=== PATIENT | male | born 1950 | race Asian ===

== ENCOUNTER 2019-11-11 16:52 | Inpatient (IN) ==
[2019-11-11] MEDS ORDERED: LORazepam 1 MG TAB SL STA (17:30)
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
--- NOTE | 2019-11-11 17:54 | CT Scan Report ---
CT head/brain wo con CLINICAL HISTORY: 69 years-old Male with REDD eval for bleed. Acute headache TECHNIQUE: Multiple axial CT images of the head were obtained without contrast. A dose lowering tech nique was utilized adhering to the principles of ALARA. CT DOSE: 767.83 mGy.cm COMPARISON: None. FINDINGS: No acute intracranial hemorrhage, midline shift, intracranial mass, hydrocephalus, territorial ischem ia or abnormal extra-axial collection. Motion degraded exam. Mild patchy white matter hypodensities s uggest chronic microvascular ischemic disease. The calvarium is intact. Mild subcutaneous edema of the right frontal scalp. The paranasal sinuses, m astoid air cells, and middle ear cavities are clear. IMPRESSION: 1. Mildly motion degraded exam without acute intracranial abnormality. 2. Mild subcutaneous edema of the right frontal scalp. ACT 112: Negative or not required by law. The above report was generated using voice recognition software. It may contain grammatical, syntax o r spelling errors. Electronically signed by: Miguel Angel Akins M.D. 11/11/2019 5:53 PM
[2019-11-11 18:02] LABS: Appearance Urine Clear (Clear); Bilirubin Urine Negative (Negative); Blood Urine Negative (Negative); Color Urine Dark Yellow; Glucose Urine UA Negative (Negative); Ketones Urine 1+ (Negative); Leukocyte Esterase Urine Negative (Negative); Nitrite Urine Negative (Negative); Protein Urine Negative (Negative); Urobilinogen Urine Negative (Negative); pH Urine 6.5 (4.5-7.5)
[2019-11-11] MEDS: HALOPERIDOL LACTATE 5 MG/ML 1 ML VIAL IM STA ×2 (18:16→21:15)
[2019-11-11 18:25] LABS: Amphetamines+Metham, Urine Neg (Neg); Barbiturates, Urine Neg (Neg); Benzodiazepine, Urine Neg (Neg); Cocaine, Urine Neg (Neg); MDMA (Ecstacy), Urine Neg (Neg); Methadone, Urine Neg (Neg); Opiate, Urine Neg (Neg); Phencyclidine, Urine Neg (Neg)
[2019-11-11 18:32] LABS: Basophils # (auto) 0.01 K/uL (0-0.2); Basophils % (auto) 0.1 %; Eosinophils # (auto) 0.01 K/uL (0-0.5); Eosinophils % (auto) 0.1 %; Hematocrit (blood only) 45.2 % (42-52); Hemoglobin 15.8 g/dL (14.0-18.0); Immature Granulocytes # (auto) 0.02 K/uL (0.00-0.02); Immature Granulocytes % (auto) 0.2 %; Lymphocytes # (auto) 0.98 K/uL (1.2-3.4); Lymphocytes % (auto) 9.4 %; Mean Corpuscular Hemoglobin 31.5 pg (25-34); Mean Platelet Volume 10.4 fL (7.4-10.4); Monocytes # (auto) 0.46 K/uL (0.11-0.59); Monocytes % (auto) 4.4 %; Neutrophils # (auto) 8.91 K/uL (1.4-6.5); Neutrophils % (auto) 85.8 %; Platelet Count 269 K/uL (130-400); RDW Coefficient of Variation 13.3 % (11.5-14.5); RDW Standard Deviation 43.7 fL (36.4-46.3); Red Blood Count 5.02 M/uL (4.7-6.1); White Blood Count 10.39 K/uL (4.8-10.8)
[2019-11-11 18:47] LABS: BUN Creatinine Ratio 10.4 (10-20); Calcium 9.1 mg/dl (8.5-10.1); Creatinine Clr Calc Pharmacy 66.5 ml/min; Est GFR (African American) 83.2; Est GFR (Non-African American) 71.8; Potassium 3.3 mmol/L (3.5-5.1)
[2019-11-11 18:53] LABS: Acetaminophen < 2 ug/ml (10-30); Salicylate < 1.7 mg/dl (2.8-20)
[2019-11-11 18:58] LABS: Bilirubin,Total 1.1 mg/dl (0.2-1); Globulin 3.8 gm/dl (2.5-4.0); Thyroid Stimulating Hormone 0.625 uIu/ml (0.300-4.500); Total Protein 7.8 gm/dl (6.4-8.2)
--- NOTE | 2019-11-12 00:09 | Emergency Department Note ---
ED Visit Note The patient was taken in signout from Dr. Thrasher at the change of shift. Please see that note for details. The patient was pending 302 mental health evaluation and placement. Currently the process is underway. The patient has rested comfortably in the emergency department without event. His case was signed out to Dr. Hendrickson at the change of shift. . : Acute head injury Qualifiers: Encounter type: initial encounter Qualified Code(s): S09.90XA - Unspecified injury of head, initial encounter
--- NOTE | 2019-11-12 04:08 | Emergency Department Note ---
ED Visit Note The case was signed out to me at change of shift. A bed search was suspended till morning. The patient is resting comfortably at this time with family at the bedside. The patient was up to the bathroom multiple times. The case was signed out to Dr. Brito at change of shift in the morning. I discussed the case with the ED psychiatric manager rn case. They will resume the bed search in the morning. . : Acute head injury Qualifiers: Encounter type: initial encounter Qualified Code(s): S09.90XA - Unspecified injury of head, initial encounter
--- NOTE | 2019-11-12 10:34 | Emergency Department Note ---
ED Visit Note Patient signed out to me by Dr. Hendrickson on 302, medically cleared. Patient's family is able to bring in bottles of his home antihypertensives and these are ordered for his hypertension. No other issues. Bed search is in progress. Signed out to Dr. Thrasher at change of shift. . : Acute head injury Qualifiers: Encounter type: initial encounter Qualified Code(s): S09.90XA - Unspecified injury of head, initial encounter
[2019-11-12] MEDS: FELODIPINE 5 MG TABCR PO SCH (11:45)
[2019-11-12] MEDS: LOSARTAN POTASSIUM 50 MG TAB PO SCH (11:45)
[2019-11-12] MEDS: METOPROLOL TARTRATE 25 MG TAB PO SCH (11:45)
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
--- NOTE | 2019-11-12 21:31 | Emergency Department Note ---
ED Visit Note This patient was signed out to me at [address] Brito. I had seen the patient yesterday and signed a 302 for involuntary commitment due to homicidal and suicidal ideation. Unfortunately bed search was unsuccessful overnight and throughout the day. As the patient has been here over 23 hours I did call Myla Wu who is the PA for the psychiatric service. I did request a consult from the psychiatric service given that the patient is in holding in the emergency department for almost a day without any treatment for his psychiatric illness. The patient was not seen but the PA spoke to the psychiatrist on-call and performed a chart review stating that they recommend continued bed search and had no recommendations at this time. I did apologize to the patient as well as his son-in-law who are at the bedside. The patient appears to be in good spirits currently and is not agitated. He was smiling and thanked me for my care. The patient was signed out to Dr. Gr at change of shift. . : Acute head injury Qualifiers: Encounter type: initial encounter Qualified Code(s): S09.90XA - Unspecified injury of head, initial encounter
--- NOTE | 2019-11-13 01:58 | Emergency Department Note ---
ED Visit Note The patient was taken in signout from Dr. Thrasher at the change of shift. Please see that note for details. The patient was pending bed placement for 302 psychiatric warrant. Patient had an uneventful stay during my time overseeing him in the emergency department. He was signed out to Dr. Hendrickson at the change of shift as bed search is currently suspended. . : Acute head injury Qualifiers: Encounter type: initial encounter Qualified Code(s): S09.90XA - Unspecified injury of head, initial encounter
--- NOTE | 2019-11-13 03:04 | Emergency Department Note ---
ED Visit Note This case was signed out to me at change of shift awaiting bed placement. The bed search has been suspended overnight. The patient rested comfortably throughout the night. The case will be signed out to Dr. Kay at change of shift awaiting bed placement. . : Acute head injury Qualifiers: Encounter type: initial encounter Qualified Code(s): S09.90XA - Unspecified injury of head, initial encounter
[2019-11-13] MEDS ORDERED: FELODIPINE 5 MG TABCR PO SCH (11:15)
[2019-11-13] MEDS ORDERED: LOSARTAN POTASSIUM 50 MG TAB PO SCH (11:15)
[2019-11-13] MEDS ORDERED: METOPROLOL TARTRATE 25 MG TAB PO SCH (11:15)
[2019-11-13] MEDS: METOPROLOL TARTRATE 25 MG TAB PO SCH (12:20)
[2019-11-13] MEDS: FELODIPINE 5 MG TABCR PO SCH (12:21)
[2019-11-13] MEDS: LOSARTAN POTASSIUM 50 MG TAB PO SCH (12:21)
[2019-11-13] MEDS ORDERED: MAGNESIUM HYDROXIDE SUSP 30 ML UDC PO PRN (12:53)
[2019-11-13] MEDS ORDERED: ACETAMINOPHEN 325 MG TAB PO PRN (12:53)
[2019-11-13] MEDS ORDERED: SODIUM CHLORIDE 0.65% NA SOLN 45 ML (OCEAN) PRN (12:53)
[2019-11-13] MEDS ORDERED: BISMUTH SUBSALICYLATE PER ML OMNICELL CHARGE PO PRN (12:53)
[2019-11-13] MEDS ORDERED: ALUMINUM/MAGNESIUM SUSP 30 ML UDC PO PRN (12:53)
--- NOTE | 2019-11-13 13:53 | Allied Health Admission Assmnt ---
Date of Service November 13, 2019 Impression / Recommendations Impression 69-year-old male admitted involuntarily for inpatient psychiatric treatment on 11/13/2019 after presenting to the ED via police for mental health evaluation. It was reported that patient had been involved in an argument with his and daughter, and grandson called 911 in response. What remains unclear is whether or not patient had made suicidal and homicidal statements during this argument (varying reports) and whether or not a knife that had been found on the patient by police was to be utilized to harm either the patient or his family. There are pending criminal charges for terroristic threats, which insinuates that this was not a simple misunderstanding as the patient claims - but additional information will be necessary to determine this. Pt does admit to a "bad mood" for the past 2 years and possibly some symptoms consistent with PTSD related to a previous encounter with police. Unfortunately, patient was not able to provide clear information on this and could not be consented to initiate an antidepressant medication at this point in his admission. Will continue to gather collateral information from family and offer support and services as able. Family is able to participate in a support meeting tomorrow to begin to work on these safety planning steps. Until that time, significant concern remains for the safety of the patient and his family. It is believed that inpatient psychiatric treatment is necessary until these risk mitigation can occur and additional information is obtained. Dr. Nancy Mckeon was directly involved in review and discussion of the patient's case and participated in medical decision making regarding treatment recommendations. (1) Suicidal ideation: 11/12 - Admitted to a locked inpatient behavioral health unit, on q15 minute safety checks - Encourage medication initiation/adjustments as indicated - Encourage participation in group and recreational therapies - Gather collateral information from outpatient providers - Suggest family meeting to involve outpatient supports in safety planning - Arrange appropriate aftercare (2) Depressive disorder: 11/12 - Pt reports "bad mood" for the past 1-2 years. It is reported that family thinks he has been depressed. Unfortunately, patient was not able to engage in a clear conversation regarding desire for antidepressant medications, so unable to consent him for treatment at this time. - Pt does report some symptoms consistent with PTSD, following "brutality" by police about 2 years ago. He admits to nightmares. Unclear if true criteria for PTSD, but these symptoms may also be targeted with addition of an SSRI. - Will continue to gather collateral information from family and assess indication to begin antidepressant medication. - Will assess if need to refer for outpatient psychiatric providers - Family agreeing to support meeting scheduled for tomorrow morning (3) Homicidal ideation: 11/12 - It was reported that HI was directed toward patient's daughter and son-in-law. Confirmed they feel safe being involved in the patient's treatment. 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 Pt reportedly has no psychiatric history, but was admitted to our facility on 11/13/2019 on a 302 involuntary commitment for homicidal and suicidal ideation, verbalizing plan to stab himself/family and actually being found with a kitchen knife at time of po lice intervention. Chief Complaint "The kids dialed 911 and the police at the 911, they called me." History of Present Illness Jocy ("Tiffanie-joseph") Elias is a 69-year-old male admitted involuntarily for inpatient psychiatric treatment on 11/13/2019 after presenting to the ED via police on a 302 warrant for mental health evaluation. It was reported that the patient's presentation is related to family disputes that have been occurring over the past week. It was reported that in the context of the most severe argument, the patient had threatened to stab himself, his adult daughter, and his grandson. The details continue to be somewhat unclear; however, it seems the patient left the setting at one point and returned with a large kitchen knife. It is reported that the patient was handcuffed and began to bang his head against the handcuffs while EMS were called. ED documentation suggests the patient continued to make statements that he wanted to kill himself "because of the shame of being here" (per friend). Pt denied any mental health history. It was reported that he and his [place] the [place] in [place] to visit his daughter, and has been unable to leave the [place] due to the COVID-19 pandemic. Patient's case is complicated by the fact that he only speaks Mandarin. This created some difficulty with regard to inpatient psychiatric referrals from the ED. Pt was in the ED for ~40 hours before an appropriate bed was available. Wh ile in the ED, the patient was calm and cooperative with assessments and monitoring. Pt was cooperative with psychiatric assessment after arriving to the unit. Assessment was completed in conjunction with nursing admission assessment and Mandarin-Indonesian conversation was conducted with assistance from [facility] interpretive service [facility] #[id number]. Pt states that he is in the hospital as "the kids dialed 911 and the police at the 911, they called me." Pt continues to share that "I carried a bag to the workplace, inside the bag was a knife - a knife I use for work." Pt states "I did get into and argument with my and my daughter. 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 She missed a bus. The argument started when we told her not to come in. We were arguing downstairs and my grandson was upstairs and heard us. The same night, I came home with a knife and the police were there." It is reported by the wholesale diamond broker that the patient does not always answer the questions being asked and there is question of if patient is speaking a different dialect of Mandarin, so the interview is somewhat difficult. Pt states he feels he was " overreacting" and "it was a misunderstanding, we were speaking in different dialect, my grandson probably didn't understand. I think it was misinterpreted ." Pt has difficulty directly answering questions about his previous mood symptoms. He denies issues with sleep or appetite. He does admit to "a bad mood" when asked about depression. He admits to mood being poor for the past 1-2 years, following an event in [place] where he was "abused by police, my property was taken away, I suffered police brutality. Now I have a bad impression of police, it was very stressful." Pt also states that he and his siblings have been fighting about inheritance and that isolation related to the pandemic have been contributing as well. Pt does admit to occasional nightmares replaying the " police brutality" event, but states it is "unpredictable, sometimes every 2-3 weeks." Pt denies present SI or HI, SIB, A/V hallucinations, paranoia, edna/hypomania, other symptoms more suggestive of a bipolar presentation, and other specific psychiatric symptoms. He is agreeable with a family meeting tomorrow. Pt was engaged in a conversation to share hanna phrases that we could recognize for certain requests on the unit. He smiled appropriately and pleasantly participated in providing several words ("Cola", "[place] Juice", "snack", etc). He denied other needs or concerns at this time. Past Psychiatric History Current Psychiatric Diagnosis: No prior diagnosis Outpatient Services: None Previous Psych Admissions: None Do You Have Access To A Gun?: No (but does have access to knives) History of Previous Suicide Attempt: No Describe Attempts in the Past: None Past Medication Trials: None Past Head Trauma/Neuro History History of Concussion/Seizure: No Home Medications Home Medications Medication Instructions Recorded Confirmed Type felodipine 5 mg PO DAILY 11/12/19 11/12/19 History losartan 50 mg PO DAILY 11/12/19 11/12/19 History metoprolol tartrate 25 mg PO DAILY 11/12/19 11/12/19 History Family History Family History of: None Alcohol History Hx of Alcohol Use Over the Past 12 Months: Yes (Occassional) Reports he utilized alcohol daily when living in [place] - occasional use since coming to the . Pt states he will drink "a little bit of beer with my son-in-law when I'm happy." Smoking Use Smoking Status: Never smoker Substance History Hx of Prescription Med Misuse Over the Past 12 Months: No Hx of Over the Counter Med Misuse Over the Past 12 Months: No Hx of Inhalent Misuse Over the Past 12 Months: No Hx of Organic Substance Use Over the Past 12 Months: No Hx of Illegal Substances/Street Drug Use Over Past 12 Months: No Problems as a Result of Past Substance Use: None Identified Denies current use or prior heavy experimentation with illicit substances. 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 the [place]) Marital Status: (to of 40 years) Number Of Children: 1 adult daughter Current Legal Problems: Yes Legal Problems Comment: charges for terroristic threats related to event prior to admission Hx Legal Problems: Yes Psychological Trauma History Comment: states he was "abused" and suffered "police brutality" 2 years ago, claims this was traumatic Patient History Medical History Hypertension Social History Smoking Status: Never smoker Preferred Language: Mandarin Northern Irish Communication Ability: nonenglish Enterprise Resource Planner Required: Yes Beliefs That Will Affect Care: None Current Living Situation: Family Feels Safe at Home: Yes Review of Systems Constitutional: denied Cardiovascular: denied Respiratory: denied Gastrointestinal: denied Neurological: denied Musculoskeletal: reports joint pain in right hand Psychiatric: denies symptoms other than stated above Total of at least 10 systems reviewed, pertinent positives as above and in HPI. Physical Exam Psychiatric Orientation: alert, oriented x 3 and cooperative (and pleasant) Apperance: appropriately dressed, + disheveled and appeared stated age Thin-appearing male, seated on bed in no acute distress. Pt is appropriately dressed for setting, still wearing paper scrubs as he was just admitted to unit. Wearing corrective lenses. He is appearing somewhat unkempt, likely due to prolonged ED stay. Eye Contact: good eye contact Motor Behavior: steady gait and station and no abnormal motor movements Speech: normal rate/rhythm/volume of speech Affect: euthymic affect Mood: + depressed mood ("bad mood") Thought Process: goal directed thought process, + circumstantial thought process (wholesale diamond broker states patient responds with off topic answers) and + concrete thought process Thought Content: reality based without delusions; not paranoid, no compulsions and no hopelessness Suicidal Thoughts: denies suicidal thoughts Homicidal Thoughts: denies homicidal thoughts Hallucinations: no auditory hallucinations and no visual hallucinations Cognition: attention grossly intact and language grossly intact Estimated Intelligence: consistent with education level Insight: + fair insight Judgement: + fair judgement Vital Signs (Past 24 Hours) Last Vital Signs Temp 36.8 C 11/13/19 07:37 Pulse 60 11/13/19 07:37 Resp 16 11/13/19 07:37 BP 143/85 H 11/13/19 07:37 Pulse Ox 99 11/13/19 07:37 A physical exam was performed in the ER prior to admission to the unit by Dr. Mian Thrasher MD. I accept that physical as correct/medical clearance for the inpatient physical exam. Results & Data Current Inpatient Medications Current Inpatient Medications: Current Inpatient Medications Acetaminophen (Tylenol) 650 mg PO Q4H PRN PRN Reason: Headache or Minor Fever Stop: 12/13/19 12:52 Al Hydrox/Mg Hydrox/Simethicone (Maalox) 30 ml PO Q4H PRN PRN Reason: GI Upset Stop: 12/13/19 12:52 Bismuth Subsalicylate (Kaopectate) 15 ml PO PRN PRN PRN Reason: Loose Stool Stop: 12/13/19 12:52 Felodipine (Plendil) 5 mg PO DAILY [facility] Stop: 12/12/19 10:44 Last Admin: 11/13/19 12:21 Dose: Not Given Documented by: Felodipine (Plendil) 5 mg PO QAM [facility]NER Stop: 12/13/19 11:14 Last Admin: 11/13/19 12:45 Dose: 5 mg Documented by: Hydroxyzine HCl (Vistaril) 50 mg PO HSZ PRN PRN Reason: Insomnia Stop: 12/13/19 12:52 Hydroxyzine HCl (Vistaril) 25 mg PO Q4H PRN PRN Reason: Anxiety Stop: 12/13/19 12:52 Losartan Potassium (Cozaar) 50 mg PO DAILY [facility] Stop: 12/12/19 10:44 Last Admin: 11/13/19 12:21 Dose: Not Given Documented by: Losartan Potassium (Cozaar) 50 mg PO QAM [facility] Stop: 12/13/19 11:14 Last Admin: 11/13/19 12:45 Dose: 50 mg Documented by: Magnesium Hydroxide (Milk Of Magnesia) 30 ml PO DAILY PRN PRN Reason: Constipation Stop: 12/13/19 12:52 Metoprolol Tartrate (Lopressor) 25 mg PO DAILY [facility] Stop: 12/12/19 10:44 Last Admin: 11/13/19 12:20 Dose: Not Given Documented by: Metoprolol Tartrate (Lopressor) 25 mg PO QAM ABNER Stop: 12/13/19 11:14 Last Admin: 11/13/19 12:45 Dose: 25 mg Documented by: Sodium Chloride ([place] Nasal) 1 - 2 sprays NA PRN PRN PRN Reason: Nasal Dryness/Congestion Stop: 12/13/19 12:52
--- NOTE | 2019-11-13 22:02 | Emergency Department Note ---
ED Visit Note Patient signed out to me by Dr. Kay. Patient had been signed out to him by Dr. Hendrickson who originally saw and evaluated the patient. At the time I received signout patient had been medically cleared, had a signed 302, and was awaiting bed placement. Patient ultimately accepted to [facility]. . : Acute head injury Qualifiers: Encounter type: initial encounter Qualified Code(s): S09.90XA - Unspecified injury of head, initial encounter
--- NOTE | 2019-11-14 08:08 | History & Physical ---
Date of Service November 14, 2019 Impression / Recommendations Impression 69-year-old male admitted involuntarily for inpatient psychiatric treatment on 11/13/2019 after presenting to the ED via police for a mental health evaluation after he threatened to kill his family, was arrested for terroristic threats, and then threatened to kill himself and hit himself in the head with the handcuffs. His account of events is vague and difficult to follow, and is inconsistent with the report from police and his other family members. Family meeting is scheduled today and hopefully will be able to clarify what happened. He does not feel that he is depressed or needs treatment, and maintains he was mistreated by police, which apparently also happened to him in [place]. He does have pending criminal charges for terroristic threats, and will be picked up by police at discharge. Although yesterday he reported having been in a "bad mood" for the past 2 years, today he denies symptoms of depression and attributes his problems to being stuck at his daughter's house for the past 5 months due to the pandemic. Inpatient psychiatric treatment remains medically necessary at this time due to evidence that the patient both threatened to kill his daughter and himself, and had an act of furtherance in taking a knife to his daughter's place of work. It is still unclear if this behavior was triggered by a psychiatric illness, or would be better understood as a criminal act. (1) Suicidal ideation: 11/12 - Admitted to a locked inpatient behavioral health unit, on q15 minute safety checks - Encourage medication initiation/adjustments as indicated - Encourage participation in group and recreational therapies - Gather collateral information from outpatient providers - Suggest family meeting to involve outpatient supports in safety planning - Arrange appropriate aftercare 11/13 - Family meeting with daughter and . (2) Depressive disorder: 11/12 - Pt reports "bad mood" for the past 1-2 years. It is reported that family thinks he has been depressed. Unfortunately, patient was not able to engage in a clear conversation regarding desire for antidepressant medications, so unable to consent him for treatment at this time. - Pt does report some symptoms consistent with PTSD, following "brutality" by police about 2 years ago. He admits to nightmares. Unclear if true criteria for PTSD, but these symptoms may also be targeted with addition of an SSRI. - Will continue to gather collateral information from family and assess indication to begin antidepressant medication. - Will assess if need to refer for outpatient psychiatric providers - Family agreeing to support meeting scheduled for tomorrow morning 11/13 - Patient denying depressive symptoms, minimizing behaviors that led to admission. Collateral information from family may be helpful. (3) Homicidal ideation: 11/12 - It was reported that HI was directed toward patient's daughter and son-in-law. Confirmed they feel safe being involved in the patient's treatment. - Until we are able to further clarify the context of the HI, will place patient on [facility]PR (4) Hypertension: 11/12 - Continue home antihypertensive agents - felodipine, losartan, and metoprolol Risk Factors Assessment Male: Yes : No Do You Have Access To A Gun?: No Health Problems: Yes Mental Health Diagnoses: No Substance Use Disorders: No Previous Attempt: No Family History of Suicide: No Previous Psychiatric Hospitalization: No Hopelessness: No Smoker: No Protective Factors Assessment : Yes Responsible for Young Children: No Employed: Yes ([employer]) Supportive Family: Yes Psychiatric History Identifying Data CHRISTINE GRIFFIN is a 69-year-old M who currently lives in [place] with family, has no known psychiatric history, and was admitted on 11/13/19 12:53 on a 302 involuntary commitment for SI and HI, after threatening to harm himself and his family with a knife. Chief Complaint " A little bit anxious inside my heart". History of Present Illness Admission information from JAZZY Roblero, who met with the patient yesterdeb y on arrival to the unit: Patient presented to the ED via police on a 302 warrant for mental health evaluation. It was reported that the patient's presentation is related to family disputes that have been occurring over the past week. It was reported that in the context of the most severe argument, the patient had threatened to stab himself, his adult daughter, and his grandson. The details continue to be somewhat unclear; however, it seems the patient left the setting at one point and returned with a large kitchen knife. It is reported that the patient was handcuffed and began to bang his head against the handcuffs while EMS were called. ED documentation suggests the patient continued to make statements that he wanted to kill himself "because of the shame of being here" (per friend). Pt denied any mental health history. It was reported that he and his [place] the [place] in [place] to visit his daughter, and has been unable to leave the [place] due to the COVID-19 pandemic. Patient's case is complicated by the fact that he only speaks Mandarin. This created some difficulty with regard to inpatient psychiatric referrals from the ED. Pt was in the ED for ~40 hours before an appropriate bed was available. While in the ED, the patient was calm and cooperative with assessments and monitoring. Pt was cooperative with psychiatric assessment after arriving to the unit. Assessment was completed in conjunction with nursing admission assessment and Mandarin-Setswana conversation was conducted with assistance from [facility] interpretive service [facility] #[id number]. Pt states that he is in the hospital as "the kids dialed 911 and the police at the 911, they called me." Pt continues to share that "I carried a bag to the workplace, inside the bag was a knife - a knife I use for work." Pt states "I did get into and argument with my and my daughter. 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 She missed a bus. The argument started when we told her not to come in. We were arguing downstairs and my grandson was upstairs and heard us. The same night, I came home with a knife and the police were there." It is reported by the firer boiler that the patient does not always answer the questions being asked and there is question of if patient is speaking a different dialect of Mandarin, so the interview is somewhat difficult. Pt states he feels he was "overreacting" and "it was a misunderstanding, we were speaking in different dialect, my grandson probably didn't understand. I think it was misinterpreted." Pt has difficulty directly answering questions about his previous mood symptoms. He denies issues with sleep or appetite. He does admit to "a bad mood" when asked about depression. He admits to mood being poor for the past 1-2 years, following an event in [place] where he was "abused by police, my property was taken away, I suffered police brutality. Now I have a bad impression of police, it was very stressful." Pt also states that he and his siblings have been fighting about inheritance and that isolation related to the pandemic have been contributing as well. Pt does admit to occasional nightmares replaying the "police brutality" event, but states it is "unpredictable, sometimes every 2-3 weeks." Pt denies present SI or HI, SIB, A/V hallucinations, paranoia, edna/hypomania, other symptoms more suggestive of a bipolar presentation, and other specific psychiatric symptoms. He is agreeable with a family meeting tomorrow. Pt was engaged in a conversation to share hanna phrases that we could recognize for certain requests on the unit. He smiled appropriately and pleasantly participated in providing several words ("Cola", "[place] Juice", "snack", etc). He denied other needs or concerns at this time. On my assessment today, the patient was seen with Mandarin [place] oceanologist #[id number]. He states he is anxious because he is worried that "police officers will come apprehend me again," because "when I was in [place], the government and police force actually did something to me, actually hunted me, so I am very afraid of police." When asked to explain the events that led to his arrest and hospitalization, he states that they had a "little family argument, it wasn't anything major, and the police just came and put handcuffs on me." He initially refuses to give further information, stating he wants to "have a carroting machine offbearer present." After I again explained the purpose of the assessment and that it to determine the need for ongoing psychiatric treatment, he answered questions, but typically gave extremely long and circumferential answers to questions, often not clearly answering the initial question. He starts by explaining that he and his came to the [place] in 05[place]2019 with plans to visit family and travel around the country for 6 months, but due to the coronavirus pandemic, they were unable to travel and have been staying with her adult daughter, her , and 10-ye ar-old child for the past 5 months. He states that her visa has been extended, he thinks until 04/2020. He says that when he and his are at home alone, things are fine, but since they have been staying with family, it has been more stressful, as his does all the cooking and cleaning for everyone and he is worried that it is too much for her. He states that he is "not happy with the whole situation," with respect to staying at his daughter's home. His daughter works at a [place] owned local restaurant called [employer], and he states that he was trying to help her and her employers because he noticed that the knife his daughter uses there was Doll, so he went to the restaurant with her and put the knife in her purse so she could bring a better one to work. When his daughter found out that he took the knife, she got angry and they got into an argument. She was late for work and he says she was also upset about that. When he arrived back home, his asked why he was not at the restaurant with his daughter, and he told her the story. "Instead of getting some comfort, she scolded me, so we got into another fight." He says he was "very upset," and took the knife back to the restaurant to give it to his daughter at work, but when he arrived, the restaurant was closed, so he went across the street to wait. The police then came, and went through his bag, and found the knife. He says he had "a tremendous fear" of the police, and that they "just handcuffed me, I was just trying to help." He says he was "probably a bit agitated" and several times says that he "might have said some things," but is vague and evasive about what exactly he said. He eventually admits that he might have made some suicidal statements, stating that he just wanted to help and if this was how things were going to last turner, he might as well . He denies that he threatened anyone, but when asked about his criminal charges for terroristic threats, he says that his grandson probably did not understand what he and his were saying when they were fighting, because they were speaking a local dialect. He does not believe that he is depressed or needs mental health treatment, and denies ever previously having suicidal or homicidal thoughts, hurting himself or anyone else. Per the arrest warrant affidavit of probable cause, the loan workout officer states that he responded to a report of a male threatening to harm his family and himself. He interviewed the patient's daughter, Dannielle Griffin, who reported that she was late for work that morning which angered her father, who then came to their residence and was visibly angry because she was late for work. She left the residence and went to work at the restaurant, and her father remained at the residence with his 10-year-old grandson and his . He then grabbed a large knife from the kitchen and stated he was going to kill his daughter and then himself. His grandson reported that he and his grandmother were afraid of the patient, and that his grandmother was the one who heard his threat. The patient then left the house and walked toward the bus stop, and his grandson called his mother, Dannielle, to tell her what happened. Dannielle then came back to the house and picked up her son and mother and took them to the restaurant. They then saw the patient standing outside in the parking lot, and because of his threats to them, called the police. When police made contact with the patient, he had a large kitchen knife in his possession. While in custody, the patient struck his own forehead with the handcuffs, and EMS was summoned. At that point he made several threats to harm himself stating he wanted to slit his own throat. Past Psychiatric History Previous Psych History: Denies Outpatient Services: None Previous Psych Admissions: Denies Do You Have Access To A Gun?: No History of Previous Suicide Attempt: No Past Medication Trials: Denies Allergies Allergy/AdvReac Type Severity Reaction Status Date / Time No Known Allergies Allergy Unverified 11/13/19 21:24 Home Medications Home Medications Medication Instructions Recorded Confirmed Type felodipine 5 mg PO DAILY 11/12/19 11/12/19 History losartan 50 mg PO DAILY 11/12/19 11/12/19 History metoprolol tartrate 25 mg PO DAILY 11/12/19 11/12/19 History Family History Family History of: None Alcohol History Hx of Alcohol Use Over the Past 12 Months: Yes (Occassional) AUDIT Total Score: 2 Smoking Use Have You Smoked or Used Tobacco Products in the Last 30 Days: No Smoking Status: Never smoker Substance History Hx of Prescription Med Misuse Over the Past 12 Months: No Hx of Over the Counter Med Misuse Over the Past 12 Months: No Hx of Inhalent Misuse Over the Past 12 Months: No Hx of Organic Substance Use Over the Past 12 Months: No Hx of Illegal Substances/Street Drug Use Over Past 12 Months: No Problems as a Result of Past Substance Use: None Identified Personal History Living Arrangements: Home (permanent residence in [place] with ) Living Arrangements Comments: Currently living with daughter and her family in [place] (since 05/2019) Born In: [place] Highest Grade Completed: College (attended University) Employment Status: Retired (Previously worked as a a&p mechanic) Marital Status: (to of 40 years) Number Of Children: 1 adult daughter Beliefs That Will Affect Care: None Current Legal Problems: Yes Legal Problems Comment: charges for terroristic threats related to threats to kill family prior to admission. Hx Legal Problems: Yes (had issues with police in [place]) Hx Traumatic Life Events: Yes Psychological Trauma History Comment: states he was "abused" and suffered "police brutality" 2 years ago in [place], claims this was traumatic Patient History Medical History Hypertension Social History Smoking Status: Never smoker Preferred Language: Mandarin [place] Communication Ability: nonenglish Music Agent Required: Yes Beliefs That Will Affect Care: None Current Living Situation: Family Feels Safe at Home: Yes Review of Systems Review of Systems: All systems reviewed & are unremarkable except as noted in Subjective Physical Exam 2 Psychiatric: Orientation: alert, oriented to person, oriented to place and cooperative Apperance: appropriately groomed and appeared stated age Dressed in black slacks and a hooded sweatshirt, that is tucked in. Wearing glasses. Seated on the edge of the bed in no acute distress. Eye Contact: + fair eye contact Motor Behavior: no abnormal motor movements Speech: + loud speech Speaks [place]. Very loud, animated, especially when discussing events that led to his admission. Affect: + anxious affect and + irritable affect Distraught when discussing events that led to admission. Mood: + anxious mood; no depressed mood Thought Process: + circumstantial thought process Language barrier may be a factor, but patient answered even direct, yes or no questions with extremely long several minute answers. Thought Cont ent: + cognitive distortions Unclear if patient is willfully providing incorrect information, but his reports are quite different from those of his f amily and police. He is evasive when asked about his threats to harm himself and others and the events that led up to admission. Suicidal Thoughts: + reports suicidal thoughts Admits to making suicidal statements when arguing with family the day of admission. Homicidal Thoughts: denies homicidal thoughts Denies threatening to harm others, although police reports clearly indicate the patient threatened to kill his daughter and then himself, and picked up a knife and went to the restaurant where his daughter was. Hallucinations: no auditory hallucinations and no visual hallucinations Cognition: + attention not intact Insight: + poor insight Judgement: + poor judgement Vital Signs (Past 24 Hours): Last Vital Signs Temp 36.4 C L 11/14/19 06:30 Pulse 83 11/14/19 06:33 Resp 18 11/14/19 06:30 BP 150/89 H 11/14/19 06:33 Pulse Ox 98 11/13/19 17:08 Exam Statement: A physical exam was performed in the ER prior to admission to the unit by Dr. Thrasher. I accept that physical as correct/medical clearance for the inpatient physical exam. Results & Data ([facility]) Current Inpatient Medications Current Inpatient Medications: Current Inpatient Medications Acetaminophen (Tylenol) 650 mg PO Q4H PRN PRN Reason: Headache or Minor Fever Stop: 12/13/19 12:52 Al Hydrox/Mg Hydrox/Simethicone (Maalox) 30 ml PO Q4H PRN PRN Reason: GI Upset Stop: 12/13/19 12:52 Bismuth Subsalicylate (Kaopectate) 15 ml PO PRN PRN PRN Reason: Loose Stool Stop: 12/13/19 12:52 Felodipine (Plendil) 5 mg PO QAM ABNER Stop: 12/14/19 08:59 Hydroxyzine HCl (Vistaril) 50 mg PO HSZ PRN PRN Reason: Insomnia Stop: 12/13/19 12:52 Hydroxyzine HCl (Vistaril) 25 mg PO Q4H PRN PRN Reason: Anxiety Stop: 12/13/19 12:52 Losartan Potassium (Cozaar) 50 mg PO QAM ABNER Stop: 12/14/19 08:59 Magnesium Hydroxide (Milk Of Magnesia) 30 ml PO DAILY PRN PRN Reason: Constipation Stop: 12/13/19 12:52 Metoprolol Tartrate (Lopressor) 25 mg PO QAM [facility] Stop: 12/14/19 08:59 Sodium Chloride ([place] Nasal) 1 - 2 sprays NA PRN PRN PRN Reason: Nasal Dryness/Congestion Stop: 12/13/19 12:52
[2019-11-14] MEDS: LOSARTAN POTASSIUM 50 MG TAB PO SCH (08:25)
[2019-11-14] MEDS: FELODIPINE 5 MG TABCR PO SCH (08:26)
[2019-11-14] MEDS: METOPROLOL TARTRATE 25 MG TAB PO SCH (08:26)
[2019-11-15] MEDS: FELODIPINE 5 MG TABCR PO SCH (08:50)
[2019-11-15] MEDS: METOPROLOL TARTRATE 25 MG TAB PO SCH (08:51)
[2019-11-15] MEDS: LOSARTAN POTASSIUM 50 MG TAB PO SCH (08:51)
--- NOTE | 2019-11-15 10:54 | Discharge Summary ---
Date of Service November 15, 2019 History of Present Illness Admission information from JAZZY Roblero, who met with the patient yesterday on arrival to the unit: Patient presented to the ED via police on a 302 warrant for mental health evaluation. It was reported that the patient's presentation is related to family disputes that have been occurring over the past week. It was reported that in the context of the most severe argument, the patient had threatened to stab himself, his adult daughter, and his grandson. The details continue to be somewhat unclear; however, it seems the patient left the setting at one point and returned with a large kitchen knife. It is reported that the patient was handcuffed and began to bang his head against the handcuffs while EMS were called. ED documentation suggests the patient continued to make statements that he wanted to kill himself "because of the shame of being here" (per friend). Pt denied any mental health history. It was reported that he and his [place] the [place] in [place] to visit his daughter, and has been unable to leave the [place] due to the COVID-19 pandemic. Patient's case is complicated by the fact that he only speaks Mandarin. This created some difficulty with regard to inpatient psychiatric referrals from the ED. Pt was in the ED for ~40 hours before an appropriate bed was available. While in the ED, the patient was calm and cooperative with assessments and monitoring. Pt was cooperative with psychiatric assessment after arriving to the unit. Assessment was completed in conjunction with nursing admission assessment and Mandarin-Divehi conversation was conducted with assistance from [facility]ive [facility] #[id number]. Pt states that he is in the hospital as "the kids dialed 911 and the police at the 911, they called me." Pt continues to share that "I carried a bag to the workplace, inside the bag was a knife - a knife I use for work." Pt states "I did get into and argument with my and my daughter. 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 She missed a bus. The argument started when we told her not to come in. We were arguing downstairs and my grandson was upstairs and heard us. The same night, I came home with a knife and the police were there." It is reported by the chief lock tender operator that the patient does not always answer the questions being asked and there is question of if patient is speaking a different dialect of Mandarin, so the interview is somewhat difficult. Pt states he feels he was "overreacting" and "it was a misunderstanding, we were speaking in different dialect, my grandson probably didn't understand. I think it was misinterprete d." Pt has difficulty directly answering questions about his previous mood symptoms. He denies issues with sleep or appetite. He does admit to "a bad mood" when asked about depression. He admits to mood being poor for the past 1-2 years, following an event in [place] where he was "abused by police, my property was taken away, I suffered police brutality. Now I have a bad impression of police, it was very stressful." Pt also states that he and his siblings have been fighting about inheritance and that isolation related to the pandemic have been contributing as well. Pt does admit to occasional nightmares replaying the "police brutality" event, but states it is "unpredictable, sometimes every 2-3 weeks." Pt denies present SI or HI, SIB, A/V hallucinations, paranoia, edna/hypomania, other symptoms more suggestive of a bipolar presentation, and other specific psychiatric symptoms. He is agreeable with a family meeting tomorrow. Pt was engaged in a conversation to share hanna phrases that we could recognize for certain requests on the unit. He smiled appropriately and pleasantly participated in providing several words ("Cola", "Kinney Juice", "snack", etc). He denied other needs or concerns at this time. On my assessment today, the patient was seen with Mandarin Macedonian collection systems modeler #[id number]. He states he is anxious because he is worried that "police officers will come apprehend me again," because "when I was in [place], the government and police force actually did something to me, actually hunted me, so I am very afraid of police." When asked to explain the events that led to his arrest and hospitalization, he states that they had a "little family argument, it wasn't anything major, and the police just came and put handcuffs on me." He initially refuses to give further information, stating he wants to "have a bridges supervisor present." After I again explained the purpose of the assessment and that it to determine the need for ongoing psychiatric treatment, he answered questions, but typically gave extremely long and circumferential answers to questions, often not clearly answering the initial question. He starts by explaining that he and his came to the [place] in 05[place]2019 with plans to visit family and travel around the country for 6 months, but due to the coronavirus pandemic, they were unable to travel and have been staying with her adult daughter, her , and 10-year-old child for the past 5 months. He states that her visa has been extended, he thinks until 04/2020. He says that when he and his are at home alone, things are fine, but since they have been staying with family, it has been more stressful, as his does all the cooking and cleaning for everyone and he is worried that it is too much for her. He states that he is "not happy with the whole situation," with respect to staying at his daughter's home. His daughter works at a [employer] local restaurant called [employer], and he states that he was trying to help her and her employers because he noticed that the knife his daughter uses there was Doll, so he went to the restaurant with her and put the knife in her purse so she could bring a better one to work. When his daughter found out that he took the knife, she got angry and they got into an argument. She was late for work and he says she was also upset about that. When he arrived back home, his asked why he was not at the restaurant with his daughter, and he told her the story. "Instead of getting some comfort, she scolded me, so we got into another fight." He says he was "very upset," and took the knife back to the restaurant to give it to his daughter at work, but when he arrived, the restaurant was closed, so he went across the street to wait. The police then came, and went through his bag, and found the knife. He says he had "a tremendous fear" of the police, and that they "just handcuffed me, I was just trying to help." He says he was "probably a bit agitated" and several times says that he "might have said some things," but is vague and evasive about what exactly he said. He eventually admits that he might have made some suicidal statements, stating that he just wanted to help and if this was how things were going to income tax return preparer, he might as well . He denies that he threatened anyone, but when asked about his criminal charges for terroristic threats, he says that his grandson probably did not understand what he and his were saying when they were fighting, because they were speaking a local dialect. He does not believe that he is depressed or needs mental health treatment, and denies ever previously having suicidal or homicidal thoughts, hurting himself or anyone else. Per the arrest warrant affidavit of probable cause, the police shift commander states that he responded to a report of a male threatening to harm his family and himself. He interviewed the patient's daughter, Dannielle Griffin, who reported that she was late for work that morning which angered her father, who then came to their residence and was visibly angry because she was late for work. She left the residence and went to work at the restaurant, and her father remained at the residence with his 10-year-old grandson and his . He then grabbed a large knife from the kitchen and stated he was going to kill his daughter and then himself. His grandson reported that he and his grandmother were afraid of the patient, and that his grandmother was the one who heard his threat. The patient then left the house and walked toward the bus stop, and his grandson called his mother, Dannielle, to tell her what happened. Dannielle then came back to the house and picked up her son and mother and took them to the restaurant. They then saw the patient standing outside in the parking lot, and because of his threats to them, called the police. When police made contact with the patient, he had a large kitchen knife in his possession. While in custody, the patient struck his own forehead with the handcuffs, and EMS was summoned. At that point he made several threats to harm himself stating he wanted to slit his own throat. Physical Exam Psychiatric Orientation: alert, oriented x 3 and cooperative Apperance: appropriately dressed (casually, in hoodie and scrub pants), appropriately groomed and appeared stated age Eye Contact: good eye contact Motor Behavior: steady gait and station and no abnormal motor movements Speech: + loud speech and normal rate/rhythm/volume of speech Affect: euthymic affect and mood congruent with affect Mood: no depressed mood ("I'm ok, pretty well") and no anxious mood ("I know my bridges supervisor will help with the problem") Thought Process: goal directed thought process, clear/coherent thought process and thought association intact Thought Content: reality based without delusions; not paranoid and no hopelessness Suicidal Thoughts: denies suicidal thoughts, denies suicidal plan and denies suicidal intent Homicidal Thoughts: denies homicidal thoughts and denies homicidal intent Hallucinations: no auditory hallucinations and no visual hallucinations Cognition: attention grossly intact and language grossly intact Estimated Intelligence: consistent with education level Insight: + fair insight Judgement: + fair judgement Vital Signs (Past 24 Hours) Last Vital Signs Temp 36.5 C 11/15/19 09:47 Pulse 83 11/15/19 09:47 Resp 19 11/15/19 09:47 BP 134/82 11/15/19 09:47 Pulse Ox 98 11/15/19 09:47 Principal Diagnosis - Depressive disorder, NOS Psychiatric Data 69-year-old male admitted involuntarily for inpatient psychiatric treatment on 11/13/2019 after presenting to the ED via police for a mental health evaluation after he threatened to kill his family, was arrested for terroristic threats, and then threatened to kill himself and hit himself in the head with the handcuffs. His account of events is vague and difficult to follow, and is inconsistent with the report from police and his other family members. What is reported by patient and family is that patient has no prior psychiatric history, though there is mention of possible depressive symptoms after a reportedly traumatic encounter with police that occurred in [place] about 2 years ago. Attempts to discuss underlying depression were avoided by the patient with evasive responses. Therefore, patient was not initiated on any psychotropic medications. Family meeting was held with patient and his daughter to discuss the events leading to admission. It does appear that there had been some family conflict prior to the significant emotional outburst; however, daughter also maintains that it was a complex misunderstanding. This remains inconsistent with police reports; however, patient and family deny safety concerns and patient has maintained that he has not been suicidal or homicidal. Based on information available, it does not seem that there is continued acute risk of harm to patient or others; however, it remains somewhat unclear if the cause of patient's emotional dysregulation is related to a psychiatric illness or better explained as a criminal act. Pt is aware he will be picked up by police on discharge and reports he has already hired a bridges supervisor. As patient is only visiting the and was not started on any psychotropic medications, there was no indication that outpatient psychiatric services were warranted. Based on review of patient's case and their current presentation, risk of harm to self or others is no longer perceived to be acute. Management of symptoms on an outpatient basis seems the most appropriate and least restrictive setting. Police to determine legal proceedings and further confinement for criminal charges after discharge. Day of Discharge Assessment Patient's case was reviewed and discussed during treatment team. Staff report the patient has been pleasant and cooperative, but does isolate in his room. He was unable to tolerate attempts to place him with a roommate last evening, but no indication this was related to underlying psychiatric concerns. Pt and his family did participate in a phone meeting yesterday, and family verbalized desire for discharge and feeling safe with patient returning home. They are planning to contact police about patient's criminal charges, and patient and his family maintain that the situation was a misunderstanding. Nonetheless, police have requested notification of discharge as they will be picking him up. Pt was seen today to assess progress since admission and readiness for discharge. Mandarin-Divehi conversation was conducted with assistance from [facility] interpretive [facility] #[id number]. Pt states "I'm ok. Pretty well." He was asked about his family meeting and stated "I had a conversation with my family members, the doctor was present as well. We have decided the argument was related to language barriers, family conflict, and a large misunderstanding." Pt does state that his daughter and feel comfortable with him returning home. Pt was asked about the presence of SI/HI, and states "Not right now. Right from the beginning I did not have thoughts to harm anyone." Pt was reminded that police will be picking him up at discharge and was asked if there was significant anxiety or emotions surrounding this. Pt stated "I know police will pick me up, but I'm pretty sure my bridges supervisor will help with any problems." When asked how he might feel if the criminal charges remained in place, the patient stated "Didn't I tell you it was a misunderstanding? I already have a bridges supervisor to sort it out." Pt was informed of our need to coordinate discharge with the police, he does indicate that he feels ready for discharge today should they be able to arrange it. Pt was asked about any continued conflict with his family after yesterday's meeting, he states "At that time we had a conflict, yes. But we are a family, we shouldn't be angry." Pt does request that his phone be charged prior to his discharge. He denies other needs or concerns today. ROS: Constitutional: denied Cardiovascular: denied Respiratory: denied Gastrointestinal: denied Neurological: denied Psychiatric: denies symptoms other than stated above Total of at least 10 systems reviewed, pertinent positives as above and in HPI. Transition of Care Transition Of Care Record: was reviewed with the patient Advance Directives Advance Directives Information Provided: Yes Advance Directives: No Mental Health Advance Directive: No Advance Directives on File: No Living Will: No Power of Alterations Supervisor: No Advance Directives Reason:: Declines as Mental Health Visit. Risk Factors Assessment Presenting risk factors reviewed on discharge. Precipitating stressors mitigated by: admission for inpatient psychiatric observation and treatment, involvement of outpatient supports, confirmation of guns and weapons being secured, and education on diagnoses. Pt has demonstrated improvement in condition with regard to reported resolution of SI/HI and involvement of family supports to ensure appropriate safety plan. At this time, patient is requesting discharge and is no longer considered to be at acute risk of harm to himself or others. Pt will be discharged with recommendation for ongoing outpatient psychiatric treatment. Male: Yes : No Do You Have Access To A Gun?: No Health Problems: Yes Mental Health Diagnoses: No Substance Use Disorders: No Previous Attempt: No Family History of Suicide: No Previous Psychiatric Hospitalization: No Hopelessness: No Smoker: No Protective Factors Assessment : Yes Responsible for Young Children: No Employed: Yes ([employer]) Supportive Family: Yes Tobacco Cessation at Discharge Tobacco Cessation Medication Prescribed at Discharge: Not Applicable/Non-Smoker Total Time Total Time Spent: Greater Than 30 Minutes Total Time Includes: Examination of the patient, Discharge Planning and Communication with other providers Discharge Data Lab Results 11/11/19 11/11/19 11/11/19 17:54 17:54 18:13 WBC 10.39 RBC 5.02 Hgb 15.8 Hct 45.2 MCV 90.0 MCH 31.5 MCHC 35.0 RDW Std Deviation 43.7 RDW Coeff of Brett 13.3 Plt Count 269 MPV 10.4 Immature Gran % (Auto) 0.2 Neut % (Auto) 85.8 Lymph % (Auto) 9.4 Maverick % (Auto) 4.4 Eos % (Auto) 0.1 Baso % (Auto) 0.1 Neut # (Auto) 8.91 H Lymph # (Auto) 0.98 L Maverick # (Auto) 0.46 Eos # (Auto) 0.01 Baso # (Auto) 0.01 Immature Gran # (Auto) 0.02 Sodium Potassium Chloride Carbon Dioxide Anion Gap BUN Creatinine Est Cr Clr Drug Dosing Est GFR ( Amer) Est GFR (Non-Af Amer) BUN/Creatinine Ratio Glucose Calcium Total Bilirubin AST ALT Alkaline Phosphatase Total Protein Albumin Globulin Albumin/Globulin Ratio TSH Urine Color Dark Yellow Urine Appearance Clear Urine pH 6.5 Ur Specific [place] 1.010 Urine Protein Negative Urine Glucose (UA) Negative Urine Ketones 1+ H Urine Blood Negative Urine Nitrite Negative Urine Bilirubin Negative Urine Urobilinogen Negative Ur Leukocyte Esterase Negative Salicylates Urine Opiates Screen Neg Ur Methadone, Qual Neg Acetaminophen Urine Barbiturates Neg Ur Phencyclidine (PCP) Neg U Amphetamin/Meth Scrn Neg MDMA (Ecstasy) Screen Neg U Benzodiazepines Scrn Neg Ur Cocaine Metabolite Neg U Marijuana (THC) Screen Neg Ethyl Alcohol mg/dL 11/11/19 11/11/19 11/11/19 18:13 18:13 18:13 WBC RBC Hgb Hct MCV MCH MCHC RDW Std Deviation RDW Coeff of Brett Plt Count MPV Immature Gran % (Auto) Neut % (Auto) Lymph % (Auto) Maverick % (Auto) Eos % (Auto) Baso % (Auto) Neut # (Auto) Lymph # (Auto) Maverick # (Auto) Eos # (Auto) Baso # (Auto) Immature Gran # (Auto) Sodium 142 Potassium 3.3 L Chloride 114 H Carbon Dioxide 19 L Anion Gap 9.0 BUN 11 Creatinine 1.06 Est Cr Clr Drug Dosing 66.5 Est GFR ( Amer) 83.2 Est GFR (Non-Af Amer) 71.8 BUN/Creatinine Ratio 10.4 Glucose 106 H Calcium 9.1 Total Bilirubin 1.1 H AST 16 ALT 16 Alkaline Phosphatase 85 Total Protein 7.8 Albumin 4.0 Globulin 3.8 Albumin/Globulin Ratio 1.0 TSH 0.625 Urine Color Urine Appearance Urine pH Ur Specific [place] Urine Protein Urine Glucose (UA) Urine Ketones Urine Blood Urine Nitrite Urine Bilirubin Urine Urobilinogen Ur Leukocyte Esterase Salicylates < 1.7 L Urine Opiates Screen Ur Methadone, Qual Acetaminophen < 2 L Urine Barbiturates Ur Phencyclidine (PCP) U Amphetamin/Meth Scrn MDMA (Ecstasy) Screen U Benzodiazepines Scrn Ur Cocaine Metabolite U Marijuana (THC) Screen Ethyl Alcohol mg/dL < 3.0 Hospital Course (1) Suicidal ideation: 11/12 - Admitted to a locked inpatient behavioral health unit, on q15 minute safety checks - Encourage medication initiation/adjustments as indicated - Encourage participation in group and recreational therapies - Gather collateral information from outpatient providers - Suggest family meeting to involve outpatient supports in safety planning - Arrange appropriate aftercare 11/13 - Family meeting with daughter and . (2) Depressive disorder: 11/12 - Pt reports "bad mood" for the past 1-2 years. It is reported that family thinks he has been depressed. Unfortunately, patient was not able to engage in a clear conversation regarding desire for antidepressant medications, so unable to consent him for treatment at this time. - Pt does report some symptoms consistent with PTSD, following "brutality" by police about 2 years ago. He admits to nightmares. Unclear if true criteria for PTSD, but these symptoms may also be targeted with addition of an SSRI. - Will continue to gather collateral information from family and assess indication to begin antidepressant medication. - Will assess if need to refer for outpatient psychiatric providers - Family agreeing to support meeting scheduled for tomorrow morning 11/13 - Patient denying depressive symptoms, minimizing behaviors that led to admission. Collateral information from family may be helpful. (3) Homicidal ideation: 11/12 - It was reported that HI was directed toward patient's daughter and son-in-law. Confirmed they feel safe being involved in the patient's treatment. - Until we are able to further clarify the context of the HI, will place patient on MNPR (4) Hypertension: 11/12 - Continue home antihypertensive agents - felodipine, losartan, and metoprolol Mental Health & Subst Abuse Tx Therapist Name of Therapist: None International Relations Teacher Name of International Relations Teacher: None Post Discharge Appointments Smoking Cessation Counseling Tobacco Cessation Medication Prescribed at Discharge: Not Applicable/Non-Smoker Discharge Plan Discharge Items Patient Disposition: [facility] Reason For Visit: SI/HI Discharge Diagnosis: - Depressive disorder, NOS Condition on Discharge: Fair Activity: Resume your previous activity Non-emergency contact: Primary Care Provider Call non-emergency contact if: you have any medication questions and your symptoms worsen Follow-up/Referrals: PCP,NO [Primary Care Provider] - Diet: Regular Addtl Attending Provider Instructions: SPECIAL CARE INSTRUCTIONS: 1. Follow through with your scheduled aftercare appointments. If unable to keep an appointment, please call to reschedule. 2. Take your medication only as prescribed. Medication should not be changed or stopped without the approval of your doctor. In the event of worsening symptoms or concerns about side effects, contact your doctor immediately. 3. Utilize new healthy coping skills, anger management skills, and stress management skills learned during your hospitalization. Journal feelings and process them with a support person. Identify stressors or situations that may result in relapse, deterioration or inappropriate behaviors and develop a plan to deal with those issues. 4. If your coping skills are ineffective and you are in crisis, contact your outpatient providers for direction. If unable to reach your providers, please call the CAN HELP LINE AT or go to the closest Emergency Room. 5. Avoid alcohol and un-prescribed drugs. 6. You have been provided with the Mental Health Advance Directives Pamphlet for your review. AFTERCARE APPOINTMENTS: * Please call your insurance company prior to your scheduled appointment to confirm your aftercare providers are covered. Take your insurance information to your appointments. WHO TO CALL AND WHEN: Medical Emergencies: For questions or emergencies related to your hospital stay, please contact the Inpatient Behavioral Health Unit at [phone]. A instrument calibrator is on-call 09/11 for the Behavioral Health Unit for emergencies At any time you feel your situation is an emergency, you may also call [phone] immediately. Your Discharge Instructions noted above were prepared by provider Myla Wu PA-C. Pending Studies at Discharge: No Stand-Alone Forms: My Months Of Me, Suicide Prevention Resources Skilled Items Patient informed of condition?: No Discharge Level of Care: Other Communicable Disease: No Discharge Prognosis: Stable Lines: None Urinary Catheter: No Medications and DC Order Prescriptions: Continued losartan 50 mg Tablet 50 mg PO DAILY RF: 0 felodipine 5 mg Tablet Extended Release 24 Hr 5 mg PO DAILY RF: 0 metoprolol tartrate 25 mg Tablet 25 mg PO DAILY RF: 0 Discharge Orders: Discharge Order (Routine); Ordered 11/15/19 Ordered By: Myla Wu Admission Data Admit Date/Time: 11/13/19 12:53 Attending Provider: Nancy Mckeon Admit Provider: Nancy Mckeon Primary Care Provider: PCP,NO Other Interventions: Discharge Summary Assessment (RN) Last Done: 11/15/19 09:47 PSY Interdisciplinary Discharge Planning Last Done: 11/15/19 10:52 Coding Level of Care Code 70987 D/C day mgmt > 30 min Diagnoses Suicidal ideation R45.851 Depressive disorder F32.9 Homicidal ideation R45.850 Hypertension I10
--- NOTE | 2019-12-06 16:06 | Emergency Department Note ---
ED Visit Note Patient was signed out to me by Dr. Quiroga awaiting placement. The patient was not placed during my shift. Signed out to Dr. del angel. . : Acute head injury Qualifiers: Encounter type: initial encounter Qualified Code(s): S09.90XA - Unspecified injury of head, initial encounter
== END 2019-11-15 12:30 | DRG 881 ==
LOC: ED 16:52 → 3S 11-13 12:53